=== PATIENT | male | born 1980 | race Caucasian/White ===

== ENCOUNTER 2017-08-10 21:07 | Emergency (ER) | payer MEDICAID, MEDICARE ==
[~2017-08-10] VITALS: Ht 175.3 cm; Wt 99.8 kg
[2017-08-10] MEDS ORDERED: ACETAMINOPHEN 325 MG TAB PO ONE (21:30)
[2017-08-10 22:07] LABS: Basophils # (auto) 0 uL; Basophils % (auto) 0.6 % (0.0-2.0); Eosinophils # (auto) 0 uL; Eosinophils % (auto) 0.3 % (0.0-7.0); Hematocrit 47.3 % (41.0-53.0); Hemoglobin 16.3 g/dL (13.5-17.5); Lymphocytes # (auto) 1.2 uL; Lymphocytes % (auto) 19.5 % (10.0-50.0); Mean Corpuscular Hemoglobin 27.8 pg (28.0-32.0); Mean Corpuscular Hgb Conc. 34.3 g/dL (32.0-36.0); Mean Corpuscular Volume 80.9 fL (80.0-100.0); Mean Platelet Volume 7.8 fL (6.9-10.8); Monocytes # (auto) 0.6 uL; Monocytes % (auto) 9.8 % (0.0-12.0); Neutrophils # (auto) 4.2 uL; Neutrophils % (auto) 69.8 % (37.0-80.0); Nucleated Red Blood Cells % 0.1 %; Platelet Count (auto) 204 10^3/uL (140-450); Red Cell Distribution Width 13.6 % (11.8-14.3); White Blood Cell 5.9 10^3/uL (4.4-10.8)
[2017-08-10 22:19] LABS: INR 1.03 (0.9-1.15); Partial Thromboplastin Time 27.3 sec (22.64-33.71); Prothrombin Time 11.2 sec (9.37-12.3)
[2017-08-10 22:25] LABS: Albumin 3.8 g/dL (3.4-5.0); BUN/Creatinine Ratio 12.8; Calcium 8.7 mg/dL (8.5-10.1); Potassium 3.8 mmol/L (3.5-5.1)
[2017-08-10 22:34] LABS: Bilirubin, Total 0.5 mg/dL (0.2-1.0); Total Protein 7.8 g/dL (6.4-8.2)
[2017-08-10 23:07] VITALS: BP 139/94
== END 2017-08-10 23:12 | disposition home or self-care (01) ==
LOC: ER 21:07
DX: K52.9 Noninfective gastroenteritis and colitis, unspecified (principal); R51 Headache
CPT/HCPCS: 36415; 70450; 80053; 83605; 85025; 85610; 85730; 87040

== ENCOUNTER 2020-03-30 06:45 | Emergency (ER) | payer MEDICAID ==
[~2020-03-30] VITALS: Ht 175.3 cm; Wt 90.7 kg
[2020-03-30 07:10] VITALS: BP 128/78
[2020-03-30] MEDS ORDERED: methylPREDNISolone SOD SUCC 125 MG/2 ML VL IM ONE (07:45)
[2020-03-30] MEDS ORDERED: ALBUTEROL SULF 2.5 MG/0.5ML(0.5%) NEB SOLN NEB ONE (07:45)
[2020-03-30] MEDS ORDERED: IPRATROPIUM BROM 0.5 MG/2.5ML INH SOL NEB ONE (07:45)
== END 2020-03-30 08:48 | disposition home or self-care (01) ==
LOC: ER 06:45
DX: J45.909 Unspecified asthma, uncomplicated (principal); F41.1 Generalized anxiety disorder; E11.9 Type 2 diabetes mellitus without complications
CPT/HCPCS: 71046; 71250; 93005; 94640; 96372; 99284; J2930; J7644